=== PATIENT | male | born 1970 | race Caucasian/White ===

== ENCOUNTER 2019-01-10 10:58 | Emergency (ER) | payer BC, OTHER ==
[~2019-01-10] VITALS: Ht 180.3 cm; Wt 86.2 kg
[2019-01-10 12:42] VITALS: BP 135/90
== END 2019-01-10 12:43 | disposition home or self-care (01) ==
LOC: ER 10:58
DX: S01.01XA Laceration without foreign body of scalp, initial encounter (principal); F17.220 Nicotine dependence, chewing tobacco, uncomplicated; Z91.041 Radiographic dye allergy status; Z88.0 Allergy status to penicillin; Z87.442 Personal history of urinary calculi; W22.8XXA Striking against or struck by other objects, initial encounter; Y92.89 Other specified places as the place of occurrence of the external cause; Y93.89 Activity, other specified; Y99.8 Other external cause status